=== PATIENT | male | born 1940 | race Caucasian/White ===

== ENCOUNTER 2018-05-07 22:19 | Emergency (ER) | payer MEDICARE, OTHER ==
[2018-05-07] MEDS ORDERED: NITROGLYCERIN 0.4 MG 25 EA TAB SL ONE ×2 (22:20→22:36)
[2018-05-07] MEDS ORDERED: ASPIRIN TABLET 325 MG TAB ONE (22:20)
[2018-05-07] MEDS ORDERED: ASPIRIN (CHEWABLE) 81 MG TAB ONE (22:21)
[2018-05-07] MEDS ORDERED: ASPIRIN (CHEWABLE) 81 MG TAB PO ONE (22:42)
[2018-05-07] MEDS ORDERED: MORPHINE SULFATE INJ 10 MG/ML VIAL IV ONE (22:44)
[2018-05-07] MEDS ORDERED: MORPHINE SULFATE INJ 10 MG/ML VIAL ONE (22:46)
--- NOTE | 2018-05-07 23:05 | RAD ---
Chest single view on 05/07/2018 CLINICAL INDICATION: Chest pain COMPARISON: None FINDINGS: The lungs are clear. Cardiac, hilar and mediastinal contours are within normal limits. Pulmonary vascularity is within normal limits. No bony abnormality is noted. IMPRESSION: No active disease. Electronically signed by: Khurram Mann 05/07/2018 11:04 PM CDT
[2018-05-07 23:33] VITALS: O2SAT 96
[2018-05-07] MEDS ORDERED: diazePAM 2 MG TAB PO ONE (23:45)
[2018-05-08] MEDS ORDERED: ALUM & MAG HYDROX-SIMETHICONE 30 ML, LIDOCAINE VISCOUS 2% 15 ML PO ONE ×2 (00:12)
[2018-05-08] MEDS ORDERED: SODIUM CHLORIDE 0.9% 1000ML 1,000 ML IVS ONE (00:13)
[2018-05-08] MEDS ORDERED: LIDOCAINE HCL 2% (MOUTH-THROAT) 15 ML UD ONE (00:15)
[2018-05-08] MEDS ORDERED: ALUM & MAG HYDROX-SIMETHICONE 30 ML UD ONE (00:15)
[2018-05-08] MEDS ORDERED: MORPHINE SULFATE INJ 10 MG/ML VIAL IV ONE (01:12)
[2018-05-08] MEDS ORDERED: HEPARIN PREMIX 500 ML ONE (03:30)
[2018-05-08] MEDS ORDERED: HEPARIN PREMIX 25,000 UNITS in PREMIX BAG 1 BAG IVS SCH (03:30)
[2018-05-08] MEDS ORDERED: HEPARIN SODIUM (PORCINE) 5,000 U/ML VIAL ONE (03:31)
[2018-05-08] MEDS ORDERED: HEPARIN SODIUM (PORCINE) 5,000 U/ML VIAL IV ONE (03:31)
[2018-05-08 03:47] VITALS: BP 172/99
--- NOTE | 2018-05-08 03:48 | ED.PDOC ---
History of Present Illness - General Chief Complaint: Chest Pain/GA Stated Complaint: chest pain Time Seen by Provider: 05/07/18 22:24 Source: patient Exam Limitations: no limitations - History of Present Illness Initial Comments: the patient is a 77-year-old male presenting to the emergency room after about an hour and a half of left anterior chest pain with some mild associated mid back pain adjacent to T7-T9 on the left. Pain started about 1-2 hours prior to arrival. He was not doing any strenuous activity when it started. He says that he has noted that over the last couple of months he would start to have some anterior chest discomfort with exertion. It was not bad enough that he really thought much about it. He is not having any belching. He has not had any recent trauma. No vomiting. Pain is constant at about a 6 out of 10 but does peak at times to 8 out of 10 with a squeezing and sometimes sharper-type pain. He reports that he had a cardiac catheterization 5 years ago that showed stenosis of up to 70% and some vessels. This was done at [facility] in [place]. He does have a history of pulmonary artery hypertension. he does take revatio for this and did take a dose approximately 6 hours prior to arrival here. Pain is mildly worsened by palpation over these areas but not significantly. Pain is not really worsened with movement. Pain is not worsened with breathing or coughing. Timing/Duration: 1-3 hours Severity: moderate Improving Factors: nothing Worsening Factors: nothing Associated Symptoms: chest pain Allergies/Adverse Reactions: Allergies Fluvastatin Allergy (Verified 05/07/18 22:29) Ramipril [From Altace] Allergy (Verified 05/07/18 22:29) Spironolactone Allergy (Verified 05/07/18 22:29) Home Medications: Ambulatory Orders Aspirin [Yoon Low Dose] 81 mg PO DAILY 05/07/18 Hctz 25 mg/Triamterene 37.5 mg [Dyazide-25] 12.5 ea PO DAILY 05/07/18 Sildenafil Citrate (Pulmonary [Sildenafil] 20 mg PO DAILY 05/07/18 Review of Systems - Review of Systems Constitutional: States: no symptoms reported EENTM: States: no symptoms reported Respiratory: States: no symptoms reported Cardiology: States: chest pain Gastrointestinal/Abdominal: States: no symptoms reported Genitourinary: States: no symptoms reported Musculoskeletal: States: see HPI Skin: States: no symptoms reported Neurological: States: no symptoms reported Endocrine: States: no symptoms reported Hematologic/Lymphatic: States: no symptoms reported All other Systems: No Change from Baseline Past Medical History (General) - Patient Medical History Hx Cardiac Disorders: Yes Hx Congestive Heart Failure: No Hx Hypertension: Yes Hx Cancer: Yes - skin Hx Hepatitis C: Yes - cleared in 2000 Surgical History: appendectomy, cancer surgery, cholecystectomy - Vaccination History Hx Tetanus, Diphtheria Vaccination: Yes - 2014 Hx Influenza Vaccination: Yes - 2016 Hx Pneumococcal Vaccination: Yes - 2016 - Social History Hx Tobacco Use: No Hx Alcohol Use: Yes - wine Family Medical History - Family History Father Living Status: Hx Family Cancer: Yes - lung Physical Exam - Physical Exam General Appearance: Alert, Comfortable, No apparent distress Eye Exam: bilateral normal Ears, Nose, Throat: hearing grossly normal, normal ENT inspection, normal pharynx Neck: non-tender, full range of motion, supple, normal inspection Respiratory: lungs clear, normal breath sounds, no respiratory distress, no accessory muscle use Cardiovascular/Chest: normal peripheral pulses, regular rate, rhythm, no edema Peripheral Pulses: radial,right: 2+, radial,left: 2+, dorsalis pedis,right: 2+, dorsalis pedis,left: 2+ Gastrointestinal/Abdominal: non tender, soft Rectal Exam: deferred Back Exam: CVA tenderness (L) - as per history of present illness Extremity: non-tender, normal inspection, no pedal edema, normal capillary refill 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, alert, normal mood/affect, oriented x 3 Skin Exam: normal color Comments: Vital Signs - 24 hr 05/07/18 05/07/18 05/07/18 22:25 22:43 23:04 Temperature 97.8 F 97.8 F Pulse Rate 80 67 Pulse Rate [ 73 66 left] Respiratory 20 20 20 Rate Blood Pressure 174/106 130/75 [left] O2 Sat by Pulse 95 97 Oximetry 05/07/18 05/08/18 05/08/18 23:30 00:00 01:12 Temperature 97.8 F Pulse Rate 66 66 Pulse Rate [ 66 63 61 left] Respiratory 20 18 18 Rate Blood Pressure 123/75 123/72 133/72 [left] O2 Sat by Pulse 96 96 96 Oximetry 05/08/18 05/08/18 05/08/18 02:00 03:17 03:46 Temperature 97.8 F Pulse Rate 66 77 Pulse Rate [ 66 68 79 left] Respiratory 18 Rate Blood Pressure 126/67 143/83 172/99 [left] O2 Sat by Pulse 96 96 96 Oximetry Progress - Progress Progress: 05/08/18 03:52 the patient is a 77-year-old male with a history of pulmonary hypertension and mild to moderate coronary artery disease per him, diagnosed by a catheterization 5 years ago presenting with left-sided chest pain. The chest pain is somewhat worrisome in that we have been unable to really have much of an effect on it with the IV morphine or dose of nitroglycerin he was given. Pain did not respond positively to a Valium or GI cocktail either. Initial set of cardiac enzymes and repeat troponin 4 hours later are negative. He did receive 1 dose of oral nitroglycerin upon arrival when his systolic blood pressures were in the 180s even though he was taking the revatio. This did nothing for his pain but his blood pressures did come down to the 130s and have largely remained there as long as he has remained relaxed. he has been started on a heparin drip. no further nitroglycerin has been given. the patient does have a very slightly elevated d-dimer at 0.61 where the upper limits of normal is 0.5. It is felt he is low probability for a pulmonary embolus. If upon further evaluation chest pain is continuing to be present and felt not to be of cardiac origin, then the source of the d-dimer may yet need further investigating. we did attempt to get the patient to go back to [facility] where his previous catheterization was so the images could be compared for progression of disease with another catheterization however he has refused to go back there. Acceptance for evaluation with Dr. Caceres is greatly appreciated. Patient is being transferred for higher level of care. - Results/Orders Results/Orders: EKG showed normal sinus rhythm however there is criteria for LVH. Additionally there is very mild widening of the QRS complex in general indicating probable mild degradation of the conduction complex. Anderson is within normal limits. R- wave progression is within normal limits. No acute ST segment or T-wave changes diagnostic for immediate ischemia chest x-ray shows no infiltrates or significant widening of the mediastinum. No pneumothorax. 05/07/18 22:31 Telemetry .CONTINUOUS has shown normal sinus rhythm Laboratory Results - last 24 hr 05/07/18 05/07/18 05/07/18 22:36 22:36 22:36 WBC 5.5 RBC 4.41 L Hgb 14.5 Hct 42.9 MCV 97.3 H MCH 32.8 H MCHC 33.8 RDW 14.0 Plt Count 120 L MPV 8.8 Absolute Neuts (auto) 3.10 Absolute Lymphs (auto) 1.70 Absolute Monos (auto) 0.50 Absolute Eos (auto) 0.10 Absolute Basos (auto) 0.00 Neutrophils % 57.4 Lymphocytes % 30.2 Monocytes % 9.8 H Eosinophils % 2.1 Basophils % 0.5 PT 10.4 INR 1.04 PTT (SP) 25.8 D-Dimer, Quantitative 0.61 H* Sodium 141 Potassium 3.8 Chloride 107 Carbon Dioxide 26 Anion Gap 11.8 L BUN 19 H Creatinine 0.93 BUN/Creatinine Ratio 20.4 H Random Glucose 109 H Serum Osmolality 284.1 Calcium 9.2 Magnesium 1.7 L Total Bilirubin 1.0 AST 36 ALT 25 Alkaline Phosphatase 57 Creatine Kinase 260 H* CK-MB (CK-2) 2.6 CK-MB (CK-2) % Not Reportable Troponin I < 0.02 B-Natriuretic Peptide 29.1 Serum Total Protein 7.4 Albumin 3.9 Globulin 3.5 Albumin/Globulin Ratio 1.1 05/08/18 02:17 WBC RBC Hgb Hct MCV MCH MCHC RDW Plt Count MPV Absolute Neuts (auto) Absolute Lymphs (auto) Absolute Monos (auto) Absolute Eos (auto) Absolute Basos (auto) Neutrophils % Lymphocytes % Monocytes % Eosinophils % Basophils % PT INR PTT (SP) D-Dimer, Quantitative Sodium Potassium Chloride Carbon Dioxide Anion Gap BUN Creatinine BUN/Creatinine Ratio Random Glucose Serum Osmolality Calcium Magnesium Total Bilirubin AST ALT Alkaline Phosphatase Creatine Kinase CK-MB (CK-2) CK-MB (CK-2) % Troponin I < 0.02 B-Natriuretic Peptide Serum Total Protein Albumin Globulin Albumin/Globulin Ratio Departure - Departure Clinical Impression: Unstable angina Disposition: Discharge to Home or Self Care Condition: Serious Home Medications: Ambulatory Orders Aspirin [Yoon Low Dose] 81 mg PO DAILY 05/07/18 Hctz 25 mg/Triamterene 37.5 mg [Dyazide-25] 12.5 ea PO DAILY 05/07/18 Sildenafil Citrate (Pulmonary [Sildenafil] 20 mg PO DAILY 05/07/18 Transfer to Outside Facility - Transfer Information Accepting Provider:: dr caceres Accepting Facility: [facility] Reason for Transfer: required specialist not available
[2018-05-08 03:54] VITALS: TEMP 98.7
[2018-05-08] MEDS ORDERED: ASPIRIN (CHEWABLE) 81 MG TAB PO SCH (09:00)
== END 2018-05-08 04:20 | disposition short-term general hospital (02) ==
LOC: ER 22:19
DX: I20.0 Unstable angina (principal); M54.6 Pain in thoracic spine; I27.20 Pulmonary hypertension, unspecified; I10 Essential (primary) hypertension; Z79.82 Long term (current) use of aspirin; Z79.899 Other long term (current) drug therapy; Z88.8 Allergy status to other drugs, medicaments and biological substances; Z85.828 Personal history of other malignant neoplasm of skin
CPT/HCPCS: 36415; 71045; 80053; 82550; 82553; 83735; 83880; 84484; 85025; 85379; 85610; 85730; 93005; J1644; J2270; J7030

== ENCOUNTER 2019-04-18 18:49 | Emergency (ER) | payer MEDICARE, OTHER ==
[2019-04-18 20:57] VITALS: BP 144/80; TEMP 97.6; O2SAT 98
== END 2019-04-18 21:08 | disposition short-term general hospital (02) ==
LOC: ER 18:49
DX: I20.9 Angina pectoris, unspecified (principal); I25.10 Atherosclerotic heart disease of native coronary artery without angina pectoris; I10 Essential (primary) hypertension; Z86.19 Personal history of other infectious and parasitic diseases; Z85.828 Personal history of other malignant neoplasm of skin; Z95.5 Presence of coronary angioplasty implant and graft; Z90.49 Acquired absence of other specified parts of digestive tract; Z79.899 Other long term (current) drug therapy; Z79.82 Long term (current) use of aspirin; Z88.8 Allergy status to other drugs, medicaments and biological substances
CPT/HCPCS: 71045; 80048; 82550; 82553; 83880; 84484; 85025; 85610; 85730; 93005; J2270; J2405